=== PATIENT | female | born 1980 | race Two or more races ===

== ENCOUNTER 2018-01-05 11:38 | Outpatient (CLI) | payer OTHER ==
[~2018-01-05 11:38] MED LIST: LUTERA1 TAB; TRAMADOL HCL50 MG PO
== END 2018-01-05 11:44 | disposition home or self-care (01) ==
LOC: SONOGRAMA 11:38
DX: N39.0 Urinary tract infection, site not specified (principal)

== ENCOUNTER 2018-02-07 22:40 | Emergency (ER) | payer OTHER ==
[~2018-02-07] VITALS: Ht 170.2 cm; Wt 65.8 kg
== END 2018-02-08 12:33 | disposition home or self-care (01) ==
LOC: ER 22:40
DX: K80.10 Calculus of gallbladder with chronic cholecystitis without obstruction (principal); N20.0 Calculus of kidney

== ENCOUNTER → 2018-03-30 | Day surgery (SDC) | payer OTHER | END | disposition home or self-care (01) | LOC: ADM 03-23 12:00 → CIR.AMB 05:53 | DX: K80.10 Calculus of gallbladder with chronic cholecystitis without obstruction (principal) ==

== ENCOUNTER 2018-12-29 22:35 | Emergency (ER) | payer OTHER ==
[~2018-12-29] VITALS: Ht 170.2 cm; Wt 67.1 kg
== END 2018-12-30 12:19 | disposition home or self-care (01) ==
LOC: ER 22:35
DX: K59.09 Other constipation (principal); N20.0 Calculus of kidney; R10.31 Right lower quadrant pain